=== PATIENT | male | born 1970 | race Caucasian/White ===

== ENCOUNTER → 2016-11-17 | Outpatient (CLI) | payer OTHER ==
[~2016-11-17] MED LIST: AMIO200T4 PO; ASPCH81X PO; CARV6.252 PO; FERR1TAB13 PO; FURO40TA3 PO; LSX40 PO; MAGN400T6 PO; POTA10CA28 PO; SPIR25TA PO; WARF3TAB PO; WARF6TAB PO
--- NOTE | 2016-11-18 06:07 | PAP/PSG TECHNICIAN REPORT ---
[facility] Software Engineer Web [employer] Polysomnogram Report Study name: None Report date: 11/18/2016 Study date: 11/17/2016 Referring Physician: Micheal PAULA M.D. Name: TONI KOO Interpreting Physician: Curtis Paula M.D. Date of : 1970 Software Engineer Web Applications: Vicky Mckeon RPSGT. Sex: Male Age: 45 Study Type: PSG Weight: 254 lbs 15.75 in Height: 45 years, Height 6' 0" Neck Circum: BMI: 34.44 Medications: POTASSIUM CHLORIDE 10 MEQ, AMLODARONE 20 0MG, LISINOPRIL 2.5 MG, FUROSEMIDE 80 MG, DIGOXIN 125 MCG, NITROGLYCERIN 0.4 MG, TYLENOL 500 MG, WARFARIN 3 MG, CARVEDILOL 6.25 MG, SPIRONOLACTONE 25 MG, COLACE 100 MG, FEOSOL 325 MG, MAGNESIUM 400 MG, ASPIRIN 81 MG Patient History 45 yr-old male here for a baseline/split study. He has a history of loud snoring, cardiomyopathy, daytime sleepiness, and witnessed apneas. His [place] scale is 8. The test was started on room air. ETCO2 testing was not utilized during this study. Room 3 Parameters Monitored NPSG: E1-M2, E2-M1, Fp1-M2, Fp2-M1, F3-M2, F4-M2, F4-M1, C3-M2, C4-M2, C4-M1, O1-M2, O2-M2, O2-M1, T3-M2, T4-M1, P3-M2, P4-M1, CHIN1, CHIN2, HR, EKG, Legs, PFLOW, SNOR, FLOW, CFLOW, Tidal Volume, THOR, ABDO, SpO2, PLTH, CPRESS, ETCO2 Wave, ETCO2, pH Sleep Architecture Sleep Stages Time at Lights Off 11:06:48 PM STAGES Time (min.) TST (%) Time at Lights On 5:46:48 AM Wake 82.0 -- Total Recording Time (TRT) 400.00 min. N1 58.5 18 Total Sleep Period (TSP) 379.5 min. N2 198.5 62 Total Sleep Time (TST) 318.0min. N3 4.0 1 Awake Time 82.0 min. REM 57.0 18 Wake after Sleep Onset 61.5 min. Sleep Efficiency (SE) 80 % Sleep Onset Latency (BARTOLO) 20.5 min. Number of Stage 1 Shifts None Awakenings 29 Stage Changes 115 Number of REM periods 4 REM 57.0 18 REM Latency 80.5 min. NREM 261.0 82 Body Position Analysis Supine Right Left Side Prone Vertical Total Sleep Time (min.) 58.7 62.5 248.0 310.50 0.0 0.0 Total Sleep Time (%) 2% 20% 78% 98 0% N/A% Total Sleep Time REM (min.) 0.0 10.5 46.5 None 0.0 0.0 Total Sleep Time NREM (min.) 7.5 52.0 201.5 None 0.0 0.0 Intermittent Wake (min.) 51.2 11.0 19.8 None 0.0 0.0 Total Sleep Period (%) 10% None None None None None Arousals Myoclonus (PLM) * Events Count Index Events Count Index Spontaneous 25 5 Events Awake (PLMW) 90 65.9 Respiratory 8 1.3 Events Asleep w/ Arousal (PLMA) 31 5.8 PLM 31 6 Events Asleep w/o Arousal (PLMS) 385 72.6 Snoring 5 1 Total Asleep 416 78.5 Total 69 13 Total 506 76 Respiratory Analysis * CA OA MA CH H RERA Total Count 0 0 0 0 10 3 10 Index 0.0 0.0 0.0 0 1.9 1 2.5 Mean Duration 0.0 0.0 0.0 0.00 16.2 16.0 16.2 Longest Duration 0.0 0.0 0.0 0.00 0.0 17.0 34.8 Respiratory Event Summary Total Supine ~Supine Right Left Prone REM NREM Apneas Count 0 0 0 0 0 N/A 0 0 Index 0.0 0 0 0.0 0.0 N/A 0 0 Hypopneas (4% Desat) Count 10 0 10 3 7 N/A 1 9 Index 1.9 0.0 2 2.9 1.7 N/A 1.1 2.1 Apneas & All Hypopneas Count 10 0 10 3 7 N/A 1 9 Index 1.9 0 2 3 2 N/A 1.1 2.1 Respiratory Events (Lining Maker+All Hyp+RERA) Count 10 0 13 4 9 N/A 1 9 Index 2.5 0 3 3.8 2.2 N/A 1.1 2.8 Respiratory Related Arousal Count 8 0 7 2 5 N/A 0 7 Index 1.3 0 1 2 1 N/A 0 2 Snoring Analysis Supine Right Left Prone REM NREM Total Snore duration 32.7 min Snores count 1 432 1,178 N/A 201 1,410 1,611 Snore mean duration 1.2 Sec Snores index 8 415 285 N/A 211.6 324.1 304.0 TST with snoring (%) 10.3% Desaturation Event Summary: Minimum %SpO2 Event Count Mean/Min/Max Duration(sec.) Desaturation Index % Time In Bed > 90 23 26.9 / 9.8 / 53.0 14.8 23.3 86 - 90 18 24.8 / 10.5 / 44.3 3.6 76.0 81 - 85 0 N/A 0.0 0.7 76 - 80 0 N/A 0.0 0.0 71 - 75 0 N/A 0.0 0.0 66 - 70 0 N/A 0.0 0.0 61 - 65 0 N/A 0.0 0.0 56 - 60 0 N/A 0.0 0.0 51 - 55 0 N/A 0.0 0.0 < 50 0 N/A 0.0 0.0 Total REM NREM Awake <50% 0.0 min. 0.0 min. 0.0 min. 0.0 min. 51 - 60% 0.0 min. 0.0 min. 0.0 min. 0.0 min. 61 - 70% 0.0 min. 0.0 min. 0.0 min. 0.0 min. 71 - 80% 0.0 min. 0.0 min. 0.0 min. 0.0 min. 81 - 90% 306.4 min. 54.4 min. 213.0 min. 39.0 min. 91 - 100% 93.3 min. 2.6 min. 48.0 min. 42.8 min. Average 90 88 90 90 Minimum SpO2 82 85 83 82 Desaturation Event Index 4.5 4.2 3.4 8.0 # Desat. Events below 89% 21 4 12 5 Time(%) with Saturation below 89% 23.8 8.3 12.4 3.1 Time(min.) with Saturation below 89% 95.3 33.3 49.8 12.3 Time (mins) REM (mins) NREM (mins) % of TST SpO2 Below 90% 19 4 N15 54.8 SpO2 Below 88% 7 0 0 9 Heart Rate Analysis Min (bpm) Max (bpm) Average (bpm) Awake 56 127 67 NREM 52 81 64 REM 52 80 59 Overall 52 81 63 Supplemental O2 Values Minimum O2 level: None Value Start Time End Time Software Engineer Web Applications Comments Mr. Koo slept in the right, left, and supine positions. Some cardiac arrhythmias were noted (please refer to the printouts). PLMs were noted. No bruxism noted. Snoring was noted and scored as a 2-3 on a scale of 1 through 5. (0=no snoring, 5=snoring loud enough to be heard through a closed door or down the k[address] way). He did not meet specific Split-Night criteria during the diagnostic portion of this study. He did not wake up to use the restroom during the night. Mr. Koo stated that he may have slept a little better than usual. The final report will be interpreted and signed by a sleep physician. The completed physician report will then be placed in the patient medical record. Therapy (cm H2O) 0 TIB (min.) 400.0 TST (min.) 318.0 Sleep Onset (min.) 20.5 REM Onset From Sleep (min.) 80.5 Sleep Efficiency % 80 Wakefulness (%) 21 Wakefulness (min.) 82.0 NREM 1 (%) 18 NREM 1 (min.) 58.5 NREM 2 (%) 62 NREM 2 (min.) 198.5 NREM 3 (%) 1 NREM 3 (min.) 4.0 REM (%) 18 REM (min.) 57.0 # Arousals 69 Arousal Index 13 # Snore 1,611 Snore Index 304.0 AHI 1.9 AHI Supine 0 AHI Non-Supine 2 NREM AHI 2.1 REM AHI 1.1 RDI 2.5 # Obstructive Apnea 0 # Central Apnea 0 # Mixed Apnea 0 # Hypopneas 10 RERAs 3 Total Respiratory Events 14 Time Below SpO2 89% (min.) 83.0 Mean NREM SpO2 (%) 90 Mean REM SpO2 (%) 88 Mean Sleep SpO2 (%) 89 Min NREM SpO2 (%) 83 Min REM SpO2 (%) 85 Position Supine (min.) 58.7 Position Non-supine (min.) 310.5 LM Index Sleep 78.5 LM Index NREM 91.3 LM Index REM 20.0 Mean Heart Rate (bpm) 63 Min Heart Rate (bpm) 52
--- NOTE | 2016-11-21 00:04 | POLYSOMNOGRAPH REPORT ---
REFERRING PERSON: Curtis Paula MD MEDICATION AID: Vicky Mckeon. Mr. Dodson is a 45-year-old male sent for a baseline sleep study. He complains of loud snoring, daytime sleepiness and witnessed apneas. He has a history of cardiomyopathy. His [place] sleepiness scale score on the evening of this study is 8. BMI is 34.44. Following the technical and digital specifications of the [place] [employer] (AASM) a standard diagnostic polysomnogram was performed monitoring EEG, EOG, EMG (chin and leg deviations), oxygen saturation, body position, digital video, respiratory effort and airflow. The sleep Stage and event scoring was based on the AASM Manual for the Scoring of Sleep and Associated Events 2007 edition. Apneas are defined as a drop in the peak thermal sensor excursion by >90% of baseline for at least 10 seconds. Hypopneas were scored using the 4% oxygen desaturation rule (4A-Medicare) and a decrease in the nasal pressure excursions by >30% of baseline for at least 10 seconds. Respiratory effort-related arousal (RERA's) is defined as a sequence of breaths lasting at least 10 seconds characterized by increasing respiratory effort or flattening of the nasal pressure waveform leading to an arousal from sleep when the sequence of breaths does not meet criteria for an apnea or hypopnea. Apnea Hypopnea index (AHI) is defined as the number of apneas and hypopneas occurring in an hour of sleep. Respiratory disturbance index (RDI) is defined as the number of apneas, hypopneas, and RERA's occurring in an hour of sleep. Mr. Dodson's total sleep period time was 379.5 minutes. Total sleep time was 318 minutes. Sleep efficiency was 80%. Latency to sleep onset was 20.5 minutes with wake after sleep onset of 61.5 minutes. Total non-REM sleep time was 261 minutes. He spent 18% of that time in N1 sleep, 62% in N2 sleep and 1% in N3 sleep. REM latency was 80.5 minutes. Total REM sleep time was 57 minutes or 18% of total sleep time. There were 69 cortical arousals from sleep. Five of these arousals were due to snoring, 31 due to periodic limb movements of sleep, 8 were due to respiratory events, and 25 were spontaneous. There were 416 periodic limb movements on this study. Limb movement index was 78.5; however, limb movement with arousal index was 5.8. There were no central, obstructive or mixed apneas on this test. There were 10 hypopneas and 3 RERAs. Apnea-hypopnea index was 1.9, which is normal. There were 1611 snoring events recorded. Total sleep time with snoring was 10.3%. Mean saturation during sleep was borderline at 90%. Desaturations were noted to 82% with sleep. Saturations were less than 89% for 95.3 minutes of sleep time. This is significant nocturnal hypoxemia. There was no cardiac ectopy noted on this study. Occasional PVC or PAC was noted. Heart rates ranged from a low of 52 beats per minute to a high of 81 beats per minute during sleep. IMPRESSION AND PLAN: A 45-year-old male with a history of cardiomyopathy without evidence of sleep apnea but significant nocturnal hypoxemia on this test. 1. This patient would likely benefit from oxygen therapy at bedtime should he not already have this. He should be started on 2 liters and then an overnight oximetry performed to ensure that this is the amount of oxygen he needs for his hypoxemia to resolve.
== END | disposition home or self-care (01) ==
LOC: C.NEUR 20:00
PROVIDERS: ATTEND Family Medicine
DX: G47.33 Obstructive sleep apnea (adult) (pediatric) (principal); G47.31 Primary central sleep apnea; R06.83 Snoring

== ENCOUNTER 2020-05-17 10:04 | Inpatient (IN) ==
--- NOTE | 2020-05-17 10:26 | Emergency Department Note ---
Impression & Plan Syncope, CKD (chronic kidney disease), Elevated troponin, Acute hypotension ED Provider Note NAME: TONI KOO AGE: 49 SEX: M : 1970 ARRIVES VIA: Walk-In INFORMANT: Patient ED PROVIDER(S): Guillermo Pradhan DO CHIEF COMPLAINT: Syncope HPI: Patient is a 49-year-old male who presents the ER for 2 rounds of syncope. Patient has a past medical history of embolic stroke, cardiomyopathy with an ICD, systolic heart failure, ABDIAS and previous heart cath. He notes he got up from bed this morning and was walking and passed out. He notes normally when he gets up he has to sit up and stand there for a while until his lightheadedness goes away which is pretty typical. He did this. As he was walking down the kiran he passed out for short period of time. He woke back up. No complaints. He was going to go the bathroom secondary to his lactulose. He eventually got a shower and was picking on his shirt and passed out again. He denies any chest pain shortness of breath, headache, nausea vomiting or diarrhea. ROS: See above HPI for pertinent positives & negatives. A total of 10 systems reviewed and were otherwise negative. PAST MEDICAL HISTORY:See Below PAST SURGICAL HISTORY:See Below FAMILY HISTORY:See Below SOCIAL HISTORY:See Below HOME MEDICATIONS:See Below ALLERGIES:See Below VITALS:See Below PHYSICAL EXAMINATION: GENERAL: alert, well appearing, well nourished, no distress, non-toxic HEAD: normal cephalic, atraumatic EYE EXAM: normal conjunctiva, PERRL and EOM's grossly intact OROPHARYNX: no exudate, no erythema, lips, buccal mucosa, and tongue normal and mucous membranes are moist NECK: supple, no nuchal rigidity, no adenopathy, non-tender CHEST: stable to compression anteriorly and posteriorly LUNGS: clear to auscultation. Normal chest wall mechanics HEART: no murmurs, S1 normal and S2 normal ABDOMEN: abdomen soft, non-tender, normo-active bowel sounds, no masses, no rebound or guarding. PELVIS: stable to compression anteriorly and posteriorly BACK: Back is symmetrical on inspection and there is no deformity, no midline tenderness, abrasion/bruising on the right back UPPER EXTREMITIES: full active and passive range of motion of all joints without tenderness to palpation LOWER EXTREMITIES: full active and passive range of motion of all joints without tenderness to palpation NEURO EXAM: Normal sensorium, cranial nerves II-XII intact, normal speech, no weakness of arms, no weakness of legs. No drift. Iagizq-cb-taew intact. GCS: 15. MEDICAL DECISION MAKING: Patient is a 49-year-old male who presents the ER with a past medical history of CVA, traumatic subarachnoid hemorrhage, CKD, cardiomyopathy, anticoagulation, ICD who presents the ER for 2 syncopal events today. On exam he is completely neurologically intact. CT head and cervical spine were negative. IVs were established blood was obtained. Lab work shows no significant leukocytosis or anemia. INR was slightly subtherapeutic at 1.9. BMP with a creatinine of 2.38 which is actually improved from his previous at 4. LFTs were unremarkable. T bili slightly elevated 1.5. Troponin was elevated at 0.07. Upon review of his chart his last one was elevated but that was with a creatinine of 4. Unable to determine if this elevation in troponin is acute versus baseline at this time. Did review [facility]'s records and in [facility] the only elevated troponins that we could ascertain was from the when he was shipped there from here with the elevated troponin the creatinine of 4. Based on this discussed with the ospitalist for observation. ICD was interrogated and showed no dysrhythmias. Triage Nursing notes reviewed. Prior medical records reviewed Vital Signs: reviewed and remarkable for hypotension but consistent with previous Differential diagnosis: Differential diagnosis includes etiologies such as vasovagal event, infection, hypoglycemia, electrolyte abnormalities, cardiac sources, intracerebral event, toxicologic, neurologic, as well as others were entertained. ER treatment provided: See below Diagnostics interpreted by me: ECG: Sinus bradycardia rate of [address] wave changes Cardiac Monitoring: An order was placed for continuous cardiac monitoring. The monitor shows a rate of 50 with sinus rhythm. Laboratory studies: As stated above and show below. Imaging studies: See below Consultation(s): Discussed with the hospitalist for observation ED COURSE: Procedures: none Critical Care: None Past Med/Surg History Medical History Anticoagulation goal of INR 2 to 3 (Chronic) Automatic implantable cardioverter-defibrillator in situ Cervical spine fracture 04/16/2020 Chronic systolic heart failure (Acute) CKD (chronic kidney disease) CVA (cerebral vascular accident) History of embolic stroke (Chronic) LV (left ventricular) mural thrombus History LV thrombus Nonischemic cardiomyopathy Traumatic subarachnoid hemorrhage 04/16/2020 Surgical History H/O cervical spine surgery 04[place]18[place] [facility] of cardiac cath [place]31/2016 [place] [facility] [place] Family History Mother Breast cancer Father Hypertension Social History Preferred Language: Occitan Current Living Situation: Parent Other Information That Helps Us Care for You: No Feels Safe at Home: Yes Safety Concerns: Feels Safe At This Time Smoking Status: Former smoker Do You Dip or Chew Tobacco: No ; Second Hand Exposure: No ; Hx Alcohol Use: Yes Alcohol type: beer Alcohol Intake Frequency: Holidays/Special Occasions Hx Substance Use: No Allergies Allergies Allergy/AdvReac Type Severity Reaction Status Date / Time No Known Drug Allergies Allergy Unknown Unknown Unverified 05/17/20 11:49 adhesive AdvReac Intermediate Rash Unverified 05/17/20 11:49 Home Meds Home Medications Medication Instructions Recorded Confirmed amiodarone [Pacerone] 200 mg PO QAM 04/16/20 05/17/20 aspirin 81 mg PO QAM 04/16/20 05/17/20 digoxin [Digox] 125 mcg PO HS 04/16/20 05/17/20 lactulose 30 ml PO BID PRN 04/16/20 05/17/20 lisinopril 2.5 mg PO HS 04/16/20 05/17/20 magnesium oxide 400 mg PO BID 04/16/20 05/17/20 metoprolol succinate [Toprol XL] 37.5 mg PO BID 04/16/20 05/17/20 potassium chloride [Klor-Con M10] 10 meq PO BID 04/16/20 05/17/20 spironolactone [Aldactone] 12.5 mg PO QAM 04/16/20 05/17/20 torsemide 20 mg PO BID 04/16/20 05/17/20 warfarin [Jantoven] 1.5 mg PO FR 04/16/20 05/17/20 warfarin [Jantoven] 3 mg PO SUMOTUWETHSA 04/16/20 05/17/20 acetaminophen [Tylenol Extra 500 mg PO Q6H PRN 05/17/20 05/17/20 Strength] nitroglycerin [Nitrostat] 0.4 mg SUBLINGUAL UD 05/17/20 05/17/20 Results & Data (ED) Vital Signs Vital Signs - 24 hr 05/17/20 10:06 05/17/20 10:21 05/17/20 12:04 Temperature 36.6 C Temperature Source Oral Pulse Rate 58 L Pulse Rate [Apical] 47 L Pulse Rhythm [Apical] Pulse Strength [Apical] Respiratory Rate 17 18 Respiratory Effort / Characteristics Non-Labored Spontaneous Respiratory Depth Normal Respiratory Pattern Blood Pressure 82/50 L Blood Pressure [Left Arm] 92/36 L Blood Pressure Mean 60 Blood Pressure Mean [Left Arm] 54 Pulse Oximetry 98 98 98 Oxygen Delivery Method Room Air Room Air Room Air Oxygen Flow Rate Sepsis Recent Fever Within 48 Hours No Sepsis New/Unexplained Change in Mental Status No Sepsis Action Taken by Nursing No Action Required 05/17/20 13:00 Temperature Temperature Source Pulse Rate Pulse Rate [Apical] 50 L Pulse Rhythm [Apical] Regular Pulse Strength [Apical] Normal Respiratory Rate 15 Respiratory Effort / Characteristics Non-Labored Spontaneous Respiratory Depth Normal Respiratory Pattern Regular Blood Pressure Blood Pressure [Left Arm] 91/50 L Blood Pressure Mean Blood Pressure Mean [Left Arm] 63 Pulse Oximetry 100 Oxygen Delivery Method Nasal Cannula Oxygen Flow Rate 2 Sepsis Recent Fever Within 48 Hours Sepsis New/Unexplained Change in Mental Status Sepsis Action Taken by Nursing Laboratory Data Result diagrams: 05/17/20 14:35 05/17/20 10:30 Lab Results 05/17/20 05/17/20 05/17/20 Range/Units 10:30 10:30 10:30 WBC 8.63 (4.8-10.8) K/uL RBC 3.84 L (4.7-6.1) M/uL Hgb 13.2 L (14.0-18.0) g/dL Hct 40.4 L (42-52) % MCV 105.2 H (80-100) fL MCH 34.4 H (25-34) pg MCHC 32.7 (32-36) g/dL RDW Std Deviation 67.3 H (36.4-46.3) fL RDW Coeff of Adolfo 17.5 H (11.5-14.5) % Plt Count 161 (130-400) K/uL MPV 9.9 (7.4-10.4) fL Immature Gran % (Auto) 0.3 % Neut % (Auto) 77.8 % Lymph % (Auto) 9.6 % Moca % (Auto) 7.8 % Eos % (Auto) 3.9 % Baso % (Auto) 0.6 % Neut # (Auto) 6.71 H (1.4-6.5) K/uL Lymph # (Auto) 0.83 L (1.2-3.4) K/uL Moca # (Auto) 0.67 H (0.11-0.59) K/uL Eos # (Auto) 0.34 (0-0.5) K/uL Baso # (Auto) 0.05 (0-0.2) K/uL Immature Gran # (Auto) 0.03 H (0.00-0.02) K/uL PT 19.8 H (9.0-12.0) Seconds INR 1.9 H (0.9-1.1) APTT 37.3 H (21.0-31.0) Seconds PTT Ratio 1.3 Sodium 137 (136-145) mmol/L Potassium 3.7 (3.5-5.1) mmol/L Chloride 105 (98-107) mmol/L Carbon Dioxide 27 (21-32) mmol/L Anion Gap 6.0 (3-11) BUN 28 H (7-18) mg/dl Creatinine 2.38 H (0.6-1.4) mg/dl Est Cr Clr Drug Dosing 44.3 ml/min Est GFR ( Amer) 36.3 Est GFR (Non-Af Amer) 31.3 BUN/Creatinine Ratio 11.7 (10-20) Glucose 123 H (70-99) mg/dl Calcium 8.2 L (8.5-10.1) mg/dl Magnesium 2.4 (1.8-2.4) mg/dl Total Bilirubin 1.5 H (0.2-1) mg/dl AST 46 H (15-37) U/L ALT 48 (12-78) U/L Alkaline Phosphatase 143 H (45-117) U/L Troponin I 0.074 H* (0-0.045) ng/ml Total Protein 6.8 (6.4-8.2) gm/dl Albumin 2.2 L (3.4-5.0) gm/dl Globulin 4.6 H (2.5-4.0) gm/dl Albumin/Globulin Ratio 0.5 L (0.9-2) Lipase 215 (73-393) U/L TSH 2.560 (0.300-4.500) uIu/ml Administered Medications [facility] Stop: 06/16/20 14:19 Last Admin: 05/17/20 15:43 Dose: 200 mg Documented by: [id number] Aspirin (Ecotrin Ectab) [facility] [place] Stop: 06/16/20 14:19 Last Admin: 05/17/20 15:43 Dose: 81 mg Documented by: [id number] Digoxin (Lanoxin) 0.125 mg PO Q24H [facility] Stop: 06/16/20 15:59 Last Admin: 05/17/20 15:42 Dose: 0.125 mg Documented by: [id number] Warfarin Sodium (Coumadin) 3 mg PO [id number] [facility] Stop: 06/16/20 15:59 Last Admin: 05/17/20 15:41 Dose: 3 mg Documented by: [id number] Discontinued Medications Sodium Chloride (Nss) 500 mls @ 999 mls/hr IV .Q31M [facility] Stop: 05/17/20 11:00 Last Infusion: 05/17/20 11:59 Dose: 0 mls/hr Documented by: [id number] Admin: 05/17/20 11:21 Dose: 999 mls/hr Documented by: [id number] Discharge Plan Visit Data *Final* Discharge Date/Time: 05/17/20 13:44 Chief Complaint: Fall Stated Complaint: FALL ED Provider: Guillermo Pradhan Discharge Problem: Syncope, CKD (chronic kidney disease), Elevated troponin, Acute hypotension Patient Disposition: Admitted As Inpatient Discharge Instructions Interventions: ED Discharge Assessment Last Done: 05/17/20 13:44
[2020-05-17] MEDS ORDERED: SODIUM CHLORIDE 0.9% 500 ML IV SCH (10:30)
[2020-05-17 10:40] LABS: Basophils # (auto) 0.05 K/uL (0-0.2); Basophils % (auto) 0.6 %; Eosinophils # (auto) 0.34 K/uL (0-0.5); Eosinophils % (auto) 3.9 %; Hematocrit (blood only) 40.4 % (42-52); Hemoglobin 13.2 g/dL (14.0-18.0); Immature Granulocytes # (auto) 0.03 K/uL (0.00-0.02); Immature Granulocytes % (auto) 0.3 %; Lymphocytes # (auto) 0.83 K/uL (1.2-3.4); Lymphocytes % (auto) 9.6 %; Mean Corpuscular Hemoglobin 34.4 pg (25-34); Mean Corpuscular Hgb Conc 32.7 g/dL (32-36); Mean Corpuscular Volume 105.2 fL (80-100); Mean Platelet Volume 9.9 fL (7.4-10.4); Monocytes # (auto) 0.67 K/uL (0.11-0.59); Monocytes % (auto) 7.8 %; Neutrophils # (auto) 6.71 K/uL (1.4-6.5); Neutrophils % (auto) 77.8 %; Platelet Count 161 K/uL (130-400); RDW Coefficient of Variation 17.5 % (11.5-14.5); RDW Standard Deviation 67.3 fL (36.4-46.3); Red Blood Count 3.84 M/uL (4.7-6.1); White Blood Count 8.63 K/uL (4.8-10.8)
[2020-05-17 10:50] LABS: INR 1.9 (0.9-1.1); Partial Thromboplastin Ratio 1.3; Partial Thromboplastin Time 37.3 Seconds (21.0-31.0); Prothrombin Time 19.8 Seconds (9.0-12.0)
[2020-05-17 10:56] LABS: Albumin Level 2.2 gm/dl (3.4-5.0); BUN Creatinine Ratio 11.7 (10-20); Calcium 8.2 mg/dl (8.5-10.1); Creatinine Clr Calc Pharmacy 44.3 ml/min; Est GFR (African American) 36.3; Est GFR (Non-African American) 31.3; Magnesium 2.4 mg/dl (1.8-2.4); Potassium 3.7 mmol/L (3.5-5.1)
--- NOTE | 2020-05-17 11:01 | XRay Report ---
XR chest 1V portable CLINICAL HISTORY: Trauma. Chest pain COMPARISON STUDY: 04/16/2020 FINDINGS: The heart remains enlarged. There is radiographic evidence of mild pulmonary vascular conge stion. There is no lobar consolidation. There is a trace right pleural effusion. There is a left subc lavian pacer/defibrillator.[No pneumothorax is visualized. IMPRESSION: Cardiomegaly and radiographic evidence of mild pulmonary vascular congestion. No evidence of pneumothorax ACT 112: Negative or not required by law. Electronically signed by: Iain Alvarez M.D. 05/17/2020 11:00 AM
--- NOTE | 2020-05-17 11:03 | CT Scan Report ---
CT head/brain wo con CLINICAL HISTORY: Syncope. Head trauma. History of prior cerebral hemorrhage. COMPARISON STUDY: 04/16/2020 TECHNIQUE: Axial CT of the brain is performed from the vertex to the skull base. IV contrast was not administered for this examination. A dose lowering technique was utilized adhering to the principles of ALARA. CT DOSE: FINDINGS: No intra or extra-axial mass lesions are visualized. There is no CT evidence of acute cortical infarc tion. There is no evidence of midline shift. There is no acute hemorrhage. No calvarial fractures ar e visualized. There are patchy white matter hypodensities likely on a small vessel basis. Is an old left frontal lo be infarct. There is an old infarct in the left lentiform nucleus. There is no evidence of pathologic ventricular dilatation. There is no evidence of acute sinusitis IMPRESSION: No acute intracranial findings ACT 112: Negative or not required by law. Electronically signed by: Iain Alvarez M.D. 05/17/2020 11:02 AM
--- NOTE | 2020-05-17 11:12 | CT Scan Report ---
CT OF THE CERVICAL SPINE CLINICAL HISTORY: Neck pain status post trauma COMPARISON STUDY: April 16, 2020 CT DOSE: 988.73 mGy.cm TECHNIQUE: CT scan of the cervical spine was performed from the skull base to the thoracic inlet. Mary ges are reviewed in the axial, sagittal, and coronal planes. IV contrast was not administered for thi s examination. A dose lowering technique was utilized adhering to the principles of ALARA. FINDINGS: The visualized portions of the lung apices reveal no evidence of pneumothorax. There is redemonstration of a fracture involving the left C5 superior articulating facet and foramen transversarium. Since the prior study, the patient has undergone an anterior fusion at the C4-5 level . No acute fractures are visualized. Also again evident are fractures of the right C2, C3, C4 transve rse processes. There are multilevel degenerative changes IMPRESSION: 1. No acute fractures identified 2. Redemonstration of fractures involving the left C5 foramen transversarium and superior articulatin g facet 3. Redemonstration of fractures involving the right C2, C3, C4 transverse processes. 3. Interval C4-5 anterior spinal fusion ACT 112: Negative or not required by law. Electronically signed by: Iain Alvarez M.D. 05/17/2020 11:10 AM
[2020-05-17 11:17] LABS: Albumin Globulin Ratio 0.5 (0.9-2); Bilirubin,Total 1.5 mg/dl (0.2-1); Globulin 4.6 gm/dl (2.5-4.0); Thyroid Stimulating Hormone 2.56 uIu/ml (0.300-4.500); Total Protein 6.8 gm/dl (6.4-8.2); Troponin I 0.074 ng/ml (0-0.045)
--- NOTE | 2020-05-17 13:40 | History & Physical Report ---
Date of Service May 17, 2020 Assessment & Plan (1) Syncope: Pt is 49 y/o M with complex PMH including nonischemic cardiomyopathy with EF 20% s/p ICD, H/O VT/VF, history of LV thrombus, on chronic anticoagulation, history of stroke, history of portal vein thrombosis, chronic hypotension with SBPs in 80's-90's, chronic anemia, recent episode of syncope and fall resulting in subarachnoid hemorrhage and C-spine fractures treated at [facility] [place] presented to ER with complaint of syncope. DDX: orthostatic hypotension, symptomatic bradycardia, arrhythmia, brain bleed, seizure CT head without any acute findings. Device interrogation in ER without reported event. Probable syncope secondary to hypotension, bradycardia -In ER pt received 500ml NSS. Pt with chronic low SBPs in 80s-90's range and in ER SBPs stable in 80's-90's. Digoxin level: 1.8, Hgb: 12.4 (stable), INR: 1.9, no significant electrolyte abnormality -UA pending -Obtain orthostatic vital signs -Pt normally on 1L fluid restrictions, will lessen fluid restrictions and allow 1500ml for now -Would appreciate cardiology recommendations on any diuretic med changes -Cardiology consult, spoke with Dr Morrison who recommends decreasing metoprolol succinate from 37.5mg BID to 25mg BID secondary to bradycardia -CBC, BMP in am -Has abrasion to right back, monitor for any signs of ecchymosis or hematoma as pt on Coumadin. No back pain or discomfort with palpation at this time (2) Bradycardia: In ER Pulse 40's-50s -Cardiology consult, spoke to spinning bath person and recommends decreasing metoprolol succinate from 37.5mg BID to 25mg BID secondary to bradycardia -Monitor (3) Elevated troponin: Troponin: 0.074, 0.08. (was 0.08 in 04/16/2020) No acute EKG changes, No CP, SOB. Pt with renal impairment Monitor (4) CKD (chronic kidney disease): H/O ABDIAS in 04/2020 with Cr of 4 which down trended to 2.2 on 05/05/2020 Today Cr: 2.3 -Monitor renal functions -Avoid nephrotoxic agents when possible (5) Nonischemic cardiomyopathy: EF: 20% on echo 04/2020 H/O VT/VF S/P ICD -Continue amiodarone, digoxin (digoxin level: 1.8), metoprolol, lisinopril, aspirin -No evidence of volume overload today. Continue torsemide, spironolactone -Normally on 1L fluid restriction, will allow for 1500ml fluid restriction for now. Received 500ml NSS in ER -Daily weights, monitor I's&O's, low sodium diet (6) LV (left ventricular) mural thrombus: H/O LV thrombus. On Coumadin Coumadin was held after traumatic subarachnoid hemorrhage in 04/16/2020. Was resumed 05/06/2020 per neurosurgery clearance INR: 1.9 Continue Coumadin INR in am (7) Portal vein thrombosis: H/O elevated ammonia levels. On lactulose Ammonia: 32.8 Continue lactulose (8) Traumatic subarachnoid hemorrhage: (9) Cervical spine fracture: 04/16/2020 patient had syncopal episode and fall resulting in subarachnoid hemorrhage, C-spine fractures. Treated at [facility] [place], had C-spine surgery and is in c- collar for 6-8 weeks. No acute findings on CT head or CT C-spine today. No reported neck pain or VEGA Continue c-collar DVT Prophylaxis -On Coumadin Full Code Follows with Dr West for routine care Pt was seen and care coordinated with Dr Yung. See addendum History of Present Illness Chief Complaint: Syncope Primary Care Provider: Oral West MD Pt is 49 y/o M with complex PMH including nonischemic cardiomyopathy with EF 20% s/p ICD, H/O VT/VF, history of LV thrombus, on chronic anticoagulation, history of stroke, history of portal vein thrombosis, chronic hypotension with SBPs in 80's-90's, chronic anemia, recent episode of syncope and fall resulting in subarachnoid hemorrhage and C-spine fractures treated at [facility] [place] presented to ER with complaint of syncope. Patient states at baseline has dizziness with standing and usually waits a few minutes prior to walking. States this morning he stood up to go to the bathroom waited a few minutes but cannot wait very long as he needed to have BM and was walking down kiran reports "passed out". Patient does not think he lost full consciousness. He then went to bathroom reports later bent over to orange picker clothes having another episode of passing out. Patient reports abrasion to back. Denies any neck pain. He reports he was wearing his c-collar. Patient states had some discomfort to left ribs with deep palpation, no pain with breathing or range of motion. Denies any back pain, extremity pain, paresthesias or any other known injury from fall today. 04/16/2020 patient had syncopal episode and fall resulting in subarachnoid hemorrhage, C-spine fractures, ABDIAS. Patient was at [facility] 04/17 - 04/21/2020 where he had C-spine surgery and is in c-collar for 6-8 weeks. Patient did not require brain procedure. Patient with original creatinine of 4 which down trended to 2.2 on 05/05/2020. Patient states has not been taking any narcotic pain meds. Patient closely being followed by home health and cardiology. Patient had home health BP on 04/13/2020 and SBP was in the 60s however patient was asymptomatic at the time. He reports his weight has been stable at 197 to 200 pounds. Denies any shortness of breath, orthopnea, PND, lower extremity edema. Patient reports is on 32 ounce fluid restriction. He states he is currently taking torsemide 20 mg twice daily, spironolactone 12.5 mg daily. Patient has lactulose to use twice daily as needed to maintain 2-3 BMs daily. Patient states past several days has needed to take lactulose daily and has been having loose BMs. Denies fever/chills, diaphoresis, N/V, VEGA, vision changes, palpitations, increased cough (reports chronic cough), sore throat, choking, otalgia, rhinorrhea, abdominal pain, paresthesias, weakness, extremity weakness, extremity edema, rashes, urinary symptoms. In ER pt reportedly had device interrogation without acute events noted. CT head without acute findings and c-spine without acute fractures. SBPs 80s-90s with pulse 40's-50's. He received 500ml NSS. Being admitted to hospital for further evaluation and treatment Allergies Allergy/AdvReac Type Severity Reaction Status Date / Time No Known Drug Allergies Allergy Unknown Unknown Unverified 05/17/20 11:49 adhesive AdvReac Intermediate Rash Unverified 05/17/20 11:49 Home Medications Home Medications Medication Instructions Recorded Confirmed Type amiodarone [Pacerone] 200 mg PO QAM 04/16/20 05/17/20 History aspirin 81 mg PO QAM 04/16/20 05/17/20 History digoxin [Digox] 125 mcg PO HS 04/16/20 05/17/20 History lactulose 30 ml PO BID PRN 04/16/20 05/17/20 History lisinopril 2.5 mg PO HS 04/16/20 05/17/20 History magnesium oxide 400 mg PO BID 04/16/20 05/17/20 History metoprolol succinate [Toprol XL] 37.5 mg PO BID 04/16/20 05/17/20 History potassium chloride [Klor-Con M10] 10 meq PO BID 04/16/20 05/17/20 History spironolactone [Aldactone] 12.5 mg PO QAM 04/16/20 05/17/20 History torsemide 20 mg PO BID 04/16/20 05/17/20 History warfarin [Jantoven] 1.5 mg PO FR 04/16/20 05/17/20 History warfarin [Jantoven] 3 mg PO SUMOTUWETHSA 04/16/20 05/17/20 History acetaminophen [Tylenol Extra 500 mg PO Q6H PRN 05/17/20 05/17/20 History Strength] nitroglycerin [Nitrostat] 0.4 mg SUBLINGUAL UD 05/17/20 05/17/20 History Past Med/Surg History Medical History Anticoagulation goal of INR 2 to 3 (Chronic) Automatic implantable cardioverter-defibrillator in situ Cervical spine fracture 04/16/2020 Chronic systolic heart failure (Acute) CKD (chronic kidney disease) CVA (cerebral vascular accident) History of embolic stroke (Chronic) LV (left ventricular) mural thrombus History LV thrombus Nonischemic cardiomyopathy Portal vein thrombosis Traumatic subarachnoid hemorrhage 04/16/2020 Surgical History H/O cervical spine surgery 04/18/2020 at [facility] [place] History of cardiac cath 03/31/2016 at [facility] [place] Family History Mother Breast cancer Father Hypertension Social History Preferred Language: Cuban Communication Ability: Effective Current Living Situation: Parent Other Information That Helps Us Care for You: No Feels Safe at Home: Yes Safety Concerns: Feels Safe At This Time Smoking Status: Former smoker Do You Dip or Chew Tobacco: No ; Second Hand Exposure: No ; Hx Alcohol Use: Yes Alcohol type: beer Alcohol Intake Frequency: Holidays/Special Occasions Hx Substance Use: No Review of Systems Review of Systems: All systems reviewed & are unremarkable except as noted in HPI & below Physical Exam Physical Exam: General: no acute distress, WDWN Head: normocephalic, atraumatic Eyes: PERRL, EOM's intact, conjunctiva non-injected, anicteric ENT: normal inspection external ears, nose, mucous membranes moist Neck: supple, trachea midline, C-collar in place Lungs: clear, no respiratory distress, no wheezing/rhonchi/rales CV: RRR, no murmur, no pretibial edema Chest wall: no ecchymosis or discolorations, non-tender to palpation, no crepitus Abd: normal BS, soft, non-tender, small ecchymosis noted lower abdomen Back: +abrasion right mid/lower back, No spinous process tenderness or paraspinous muscle tenderness to palpation, no CVA tenderness to palpation Ext: no cyanosis or erythema, no calf tenderness, ROM extremities intact Neuro: A&O x 3, no focal deficits noted, normal affect Skin: warm, dry Results & Data Results & Data ([facility]) Vital Signs (Past 12 Hours) Vital Signs Temp Pulse Pulse Resp BP BP Pulse Ox 05/17/20 13:33 46 L 18 92/49 L 100 05/17/20 13:00 50 L 15 91/50 L 100 05/17/20 12:04 47 L 18 92/36 L 98 05/17/20 10:21 98 05/17/20 10:06 36.6 C 58 L 17 82/50 L 98 Laboratory Results Short CBC 05/17/20 05/17/20 Range/Units 10:30 14:35 WBC 8.63 8.46 (4.8-10.8) K/uL Hgb 13.2 L 12.4 L (14.0-18.0) g/dL Hct 40.4 L 39.1 L (42-52) % Plt Count 161 159 (130-400) K/uL BMP 05/17/20 10:30 Sodium 137 Potassium 3.7 Chloride 105 Carbon Dioxide 27 BUN 28 H Creatinine 2.38 H Glucose 123 H Calcium 8.2 L Cardiac Enzymes 05/17/20 Range/Units 10:30 Troponin I 0.074 H* (0-0.045) ng/ml Liver Function 05/17/20 Range/Units 10:30 Total Bilirubin 1.5 H (0.2-1) mg/dl AST 46 H (15-37) U/L ALT 48 (12-78) U/L Alkaline Phosphatase 143 H (45-117) U/L Albumin 2.2 L (3.4-5.0) gm/dl Diagnostic Findings CT HEAD: IMPRESSION: No acute intracranial findings CT C-SPINE: IMPRESSION: 1. No acute fractures identified 2. Redemonstration of fractures involving the left C5 foramen transversarium and superior articulating facet 3. Redemonstration of fractures involving the right C2, C3, C4 transverse processes. 3. Interval C4-5 anterior spinal fusion CXR: IMPRESSION: Cardiomegaly and radiographic evidence of mild pulmonary vascular congestion. No evidence of pneumothorax ECG Rate (beats per minute): 46 Rhythm: sinus bradycardia Findings: + LBBB Code Status & VTE Plan VTE Prophylaxis Plan VTE Prophylaxis will be ordered: Yes Supervising Physician Co-Signing Physician Notes Patient was seen and examined by me, care coordinated with Bruna Guan PA-C. Please see her note above for further details. Mr. Dodson is a complex 49-year-old male, with history of chronic systolic congestive heart failure, with EF of 20 to 24%, history of ventricular tachycardia/ventricular fibrillation, status post AICD placement, mitral regurgitation secondary to dilated cardiomyopathy, history of embolic CVA and LV thrombus, chronic respiratory failure with hypoxia, using supplemental oxygen 2 to 3 L at night and with exertion, hyper-ammonemia secondary to portal vein thrombosis, and most recent history of traumatic subarachnoid hemorrhage, and cervical vertebral fracture, now status post C4-C5 anterior cervical discectomy and fusion on April 18, 2020 at [facility]. At that time patient was transferred to [facility], on April 13. For his subarachnoid hemorrhage, he followed with neurosurgery via telemedicine, on May 06, 2020, and he was advised to resume Coumadin. Patient is taking Coumadin 3 mg every day except for Monday, on Monday he takes 1.5 mg. He presents in the ED today, after 2 pre-syncopal episodes earlier today. He states that he first woke up, and because he is using lactulose, had to go urgently to the bathroom. As he was walking to the bathroom, he became dizzy and lightheaded and fell down on the floor. He then got up and got to the bathroom, afterward he was dressing himself and as he was reaching for his clothes in a closet, he became dizzy and lightheaded again and fell to the floor. He states that he remembers both incidents well, and denies actual loss of consciousness. He has history of left rib fracture, and states that it is little tender there now. He also scraped his right lower back however denies any pain there. Chest x-ray was obtained in the ED, unremarkable. His ICD was interrogated in ED, did not report any significant arrhythmias. He was given 500 cc of normal saline in the ED. Patient reports not taking any medications this morning. Current INR 1.9. Creatinine elevated at above 2, however previously was above 4. His ideal weight is 197 pounds to 200 pounds. Heart rate is currently in 40s, systolic blood pressure in 90s. Discussed with cardiology, recommend to decrease his metoprolol to 25 mg twice daily. We will also check his digoxin level. Patient is on a very strict fluid restriction diet, of 1 L a day. For now we will let him have 1500 cc a day of fluid. Continue sodium restricted diet. Strict monitoring of I's and O's and daily standing weights. Patient is currently sitting up in the bed, in no acute distress, patient's mother is at the bedside. They both stated after those 2 incidents, he felt weak and dizzy however now he feels well. Patient is alert and oriented, able to answer all questions appropriately. Heart sounds regular, positive systolic murmur, lungs are clear to auscultation bilaterally, no wheezing rhonchi or crackles noted. Abdomen soft, nontender, nondistended, positive bowel sounds. of note patient reports usually having increased fluid level showing in his abdomen, and reports never having lower extremity edema. Currently has no lower extremity edema, and moves all 4 extremities spontaneously without difficulty. He is wearing cervical collar, because of his recent C4-C5 surgery. He is st ill supposed to have this on for about 2 more weeks. Patient is also on chronic supplemental oxygen, says that he is using 2 to 3 L at home at night or with exertion (chronic respiratory failure with hypoxia due to CHF). We will continue to closely monitor on telemetry, will decrease metoprolol to 25 mg twice daily, will check digoxin level. Close I's and O's and daily standing weights. Will discuss with cardiology any further recommendations prior to discharge. Curtis Yung MD
[2020-05-17] MEDS ORDERED: NITROGLYCERIN SL 0.4 MG/TAB TAB SL PRN (14:20)
[2020-05-17] MEDS ORDERED: LACTULOSE SYRUP 20 GM/30 ML UDC PO PRN (14:39)
[2020-05-17 14:49] LABS: Basophils # (auto) 0.05 K/uL (0-0.2); Basophils % (auto) 0.6 %; Eosinophils # (auto) 0.13 K/uL (0-0.5); Eosinophils % (auto) 1.5 %; Hematocrit (blood only) 39.1 % (42-52); Hemoglobin 12.4 g/dL (14.0-18.0); Immature Granulocytes # (auto) 0.01 K/uL (0.00-0.02); Immature Granulocytes % (auto) 0.1 %; Lymphocytes # (auto) 0.98 K/uL (1.2-3.4); Lymphocytes % (auto) 11.6 %; Mean Corpuscular Hemoglobin 33.8 pg (25-34); Mean Corpuscular Hgb Conc 31.7 g/dL (32-36); Mean Corpuscular Volume 106.5 fL (80-100); Mean Platelet Volume 9.7 fL (7.4-10.4); Monocytes # (auto) 0.71 K/uL (0.11-0.59); Monocytes % (auto) 8.4 %; Neutrophils # (auto) 6.58 K/uL (1.4-6.5); Neutrophils % (auto) 77.8 %; Platelet Count 159 K/uL (130-400); RDW Coefficient of Variation 17.4 % (11.5-14.5); RDW Standard Deviation 68.3 fL (36.4-46.3); Red Blood Count 3.67 M/uL (4.7-6.1); White Blood Count 8.46 K/uL (4.8-10.8)
[2020-05-17] MEDS: WARFARIN SOD 3 MG TAB PO SCH (15:41)
[2020-05-17] MEDS: DIGOXIN 0.125 MG TAB PO SCH (15:42)
[2020-05-17] MEDS: AMIODARONE 200 MG TAB PO SCH (15:43)
[2020-05-17] MEDS: ASPIRIN 81 MG ECTAB PO SCH (15:43)
--- NOTE | 2020-05-17 16:14 | Hospitalist Progress Note ---
Date of Service May 17, 2020 Assessment & Plan Admission and Anticipated Discharge Date Admission Date: May 17, 2020 Subjective Patient was seen and examined by me, care coordinated with Bruna Guan PA-C. Please see her note above for further details. Mr. Dodson is a complex 49-year-old male, with history of chronic systolic congestive heart failure, with EF of 20 to 24%, history of ventricular tachycardia/ventricular fibrillation, status post AICD placement, mitral regurgitation secondary to dilated cardiomyopathy, history of embolic CVA and LV thrombus, chronic respiratory failure with hypoxia, using supplemental oxygen 2 to 3 L at night and with exertion, hyper-ammonemia secondary to portal vein thrombosis, and most recent history of traumatic subarachnoid hemorrhage, and cervical vertebral fracture, now status post C4-C5 anterior cervical discectomy and fusion on April 18, 2020 at [facility]. At that time patient was transferred to [facility], on April 13. For his subarachnoid hemorrhage, he followed with neurosurgery via telemedicine, on May 06, 2020, and he was advised to resume Coumadin. Patient is taking Coumadin 3 mg every day except for Monday, on Monday he takes 1.5 mg. He presents in the ED today, after 2 pre-syncopal episodes earlier today. He states that he first woke up, and because he is using lactulose, had to go urgently to the bathroom. As he was walking to the bathroom, he became dizzy and lightheaded and fell down on the floor. He then got up and got to the bathroom, afterward he was dressing himself and as he was reaching for his clothes in a closet, he became dizzy and lightheaded again and fell to the floor. He states that he remembers both incidents well, and denies actual loss of consciousness. He has history of left rib fracture, and states that it is little tender there now. He also scraped his right lower back however denies any pain there. Chest x-ray was obtained in the ED, unremarkable. His ICD was interrogated in ED, did not report any significant arrhythmias. He was given 500 cc of normal saline in the ED. Patient reports not taking any medications this morning. Current INR 1.9. Creatinine elevated at above 2, however previously was above 4. His ideal weight is 197 pounds to 200 pounds. Heart rate is currently in 40s, systolic blood pressure in 90s. Discussed with cardiology, recommend to decrease his metoprolol to 25 mg twice daily. We will also check his digoxin level. Patient is on a very strict fluid restriction diet, of 1 L a day. For now we will let him have 1500 cc a day of fluid. Continue sodium restricted diet. Strict monitoring of I's and O's and daily standing weights. Patient is currently sitting up in the bed, in no acute distress, patient's mother is at the bedside. They both stated after those 2 incidents, he felt weak and dizzy however now he feels well. Patient is alert and oriented, able to answer all questions appropriately. Heart sounds regular, positive systolic murmur, lungs are clear to auscultation bilaterally, no wheezing rhonchi or crackles noted. Abdomen soft, nontender, nondistended, positive bowel sounds. of note patient reports usually having increased fluid level showing in his abdomen, and reports never having lower extremity edema. Currently has no lower extremity edema, and moves all 4 extremities spontaneously without difficulty. He is wearing cervical collar, because of his recent C4-C5 surgery. He is still supposed to have this on for about 2 more weeks. Patient is also on chronic supplemental oxygen, says that he is using 2 to 3 L at home at night or with exertion (chronic respiratory failure with hypoxia due to CHF). We will continue to closely monitor on telemetry, will decrease metoprolol to 25 mg twice daily, will check digoxin level. Close I's and O's and daily standing weights. Will discuss with cardiology any further recommendations prior to discharge. Curtis Yung MD Results & Data Results & Data ([facility]) Vital Signs (Past 12 Hours) Vital Signs Temp Pulse Pulse Resp BP BP BP 05/17/20 15:45 36.6 C 50 L 19 83/46 L 05/17/20 15:42 54 L 05/17/20 14:28 36.8 C 48 L 19 89/50 L 05/17/20 14:20 36.8 C 48 L 19 89/50 L 05/17/20 13:33 46 L 18 92/49 L 05/17/20 13:00 50 L 15 91/50 L 05/17/20 12:04 47 L 18 92/36 L 05/17/20 10:21 05/17/20 10:06 36.6 C 58 L 17 82/50 L Pulse Ox 05/17/20 15:45 97 05/17/20 15:42 05/17/20 14:28 100 05/17/20 14:20 100 05/17/20 13:33 100 05/17/20 13:00 100 05/17/20 12:04 98 05/17/20 10:21 98 05/17/20 10:06 98
[2020-05-17] MEDS: TORSEMIDE 20 MG TAB PO SCH (17:05)
[2020-05-17] MEDS: ACETAMINOPHEN 325 MG TAB PO PRN (19:38)
[2020-05-17] MEDS: MAGNESIUM OXIDE 400 MG TAB PO SCH (19:39)
[2020-05-17] MEDS: POTASSIUM CHLORIDE 10 MEQ TABCR PO SCH (19:39)
[2020-05-17] MEDS: METOPROLOL SUCC 25MG EXT REL TAB PO SCH (19:40)
[2020-05-18] MEDS: ACETAMINOPHEN 325 MG TAB PO PRN ×3 (05:15→23:32)
[2020-05-18] MEDS: SPIRONOLACTONE 12.5 MG TAB PO SCH (08:17)
[2020-05-18] MEDS: MAGNESIUM OXIDE 400 MG TAB PO SCH ×2 (08:17→20:28)
[2020-05-18] MEDS: ASPIRIN 81 MG ECTAB PO SCH (08:17)
[2020-05-18] MEDS: POTASSIUM CHLORIDE 10 MEQ TABCR PO SCH ×2 (08:17→20:28)
[2020-05-18] MEDS: AMIODARONE 200 MG TAB PO SCH (08:17)
[2020-05-18 08:24] LABS: Hematocrit (blood only) 39.2 % (42-52); Hemoglobin 12.5 g/dL (14.0-18.0); Mean Corpuscular Hemoglobin 33.7 pg (25-34); Mean Corpuscular Hgb Conc 31.9 g/dL (32-36); Mean Corpuscular Volume 105.7 fL (80-100); Mean Platelet Volume 9.7 fL (7.4-10.4); Platelet Count 144 K/uL (130-400); RDW Coefficient of Variation 17.4 % (11.5-14.5); RDW Standard Deviation 67.6 fL (36.4-46.3); Red Blood Count 3.71 M/uL (4.7-6.1); White Blood Count 7.31 K/uL (4.8-10.8)
[2020-05-18] MEDS: METOPROLOL SUCC 25MG EXT REL TAB PO SCH ×2 (08:34→20:31)
[2020-05-18 08:35] LABS: INR 2.3 (0.9-1.1); Prothrombin Time 23.1 Seconds (9.0-12.0)
[2020-05-18 09:03] LABS: BUN Creatinine Ratio 13.4 (10-20); Calcium 8.1 mg/dl (8.5-10.1); Creatinine Clr Calc Pharmacy 46.3 ml/min; Est GFR (African American) 38.2; Est GFR (Non-African American) 32.9; Potassium 4.4 mmol/L (3.5-5.1)
[2020-05-18] MEDS: TORSEMIDE 20 MG TAB PO SCH (09:06)
[2020-05-18] MEDS ORDERED: METOPROLOL SUCC 25MG EXT REL TAB PO STA (09:13)
--- NOTE | 2020-05-18 10:09 | Cardiology Consultation ---
Date of Consultation May 18, 2020 Assessment & Plan (1) Syncope: (2) Bradycardia: (3) Nonischemic cardiomyopathy: (4) CVA (cerebral vascular accident): (5) LV (left ventricular) mural thrombus: (6) Traumatic subarachnoid hemorrhage: (7) Cervical spine fracture: (8) Portal vein thrombosis: This is now the 2nd episode of syncope in a little over a month. His device interrogation was reportedly unremarkable for arrhythmia, however, his heart rate remains in the 40s. I do believe this represents symptomatic bradycardia. At this point it appears as though he would benefit from a Bi V ICD upgrade and will have him follow up with his inhalation therapy aide as an outpatient I will decrease his metoprolol to 12.5 mg twice daily to see if this does not help with symptom control until device can be upgraded I also believe he is volume depleted given the reinstitution of his lactulose along with his twice daily torsemide and daily spironolactone All hold his torsemide for now as well as his lactulose. He should be discharged home with torsemide daily while using lactulose and going back to twice daily torsemide should the lactulose no longer be needed. His spironolactone will be continued uninterrupted due to its aldosterone antagonism. Continue to monitor on telemetry overnight with the above changes. History of Present Illness Reason for Consultation: Syncope Requesting Physician: Dr. Hays Attending Physician: Nerissa Hays MD History of Present Illness It was my pleasure to see Mr. Dodson in consultation today May 18, 2020. He is a very pleasant yet cardiovascularly complex 49-year-old gentleman who presented to [facility] after a syncopal event. He arose from a seated position with the significant urge to have a bowel movement after taking lactulose and upon arriving in the bathroom he syncopized. He normally waits several seconds before arising knowing that his blood pressure and heart rate have to equilibrate, however, the urge was too strong to have a bowel movement and he was unable to do this. Upon presentation to the emergency department he is found to be relatively hypotensive and bradycardic with heart rates consistently in the 40s He also suffered a recent syncopal spell that resulted in cervical fracture and traumatic subarachnoid hemorrhage. This occurred several weeks ago in the setting of volume depletion and being in a very hot room while visiting his grandmother. He has been seen by Dr. Euceda in consideration of upgrading his device to a by V ICD given his bradycardia and significant disc nonischemic cardiomyopathy and is scheduled to follow-up with him currently. Past medical history: 1. Systolic congestive heart failure, NYHA Class III+ functional status. 2. Nonischemic cardiomyopathy with ejection fraction 20-24% 3. Ventricular tachycardia/ventricular fibrillation. No recurrent VT/VF as per interrogation last on 11/25/2019. On amiodarone 300 mg/day, followed by EP 4. 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 History of embolic CVA 6. Nonspecific interventricular conduction delay 7. Chronic iron deficiency anemia No source of bleeding per recent EGD November 05, 2015. 8. Hyperammoniemia In the setting of chronic portal vein thrombosis. Allergies Allergy/AdvReac Type Severity Reaction Status Date / Time No Known Drug Allergies Allergy Unknown Unknown Unverified 05/17/20 11:49 adhesive AdvReac Intermediate Rash Unverified 05/17/20 11:49 Home Medications Home Medications Medication Instructions Recorded Confirmed Type amiodarone [Pacerone] 200 mg PO QAM 04/16/20 05/17/20 History aspirin 81 mg PO QAM 04/16/20 05/17/20 History digoxin [Digox] 125 mcg PO HS 04/16/20 05/17/20 History lactulose 30 ml PO BID PRN 04/16/20 05/17/20 History lisinopril 2.5 mg PO HS 04/16/20 05/17/20 History magnesium oxide 400 mg PO BID 04/16/20 05/17/20 History metoprolol succinate [Toprol XL] 37.5 mg PO BID 04/16/20 05/17/20 History potassium chloride [Klor-Con M10] 10 meq PO BID 04/16/20 05/17/20 History spironolactone [Aldactone] 12.5 mg PO QAM 04/16/20 05/17/20 History torsemide 20 mg PO BID 04/16/20 05/17/20 History warfarin [Jantoven] 1.5 mg PO FR 04/16/20 05/17/20 History warfarin [Jantoven] 3 mg PO SUMOTUWETHSA 04/16/20 05/17/20 History acetaminophen [Tylenol Extra 500 mg PO Q6H PRN 05/17/20 05/17/20 History Strength] nitroglycerin [Nitrostat] 0.4 mg SUBLINGUAL UD 05/17/20 05/17/20 History Patient History Medical History Anticoagulation goal of INR 2 to 3 (Chronic) Automatic implantable cardioverter-defibrillator in situ Cervical spine fracture 04/16/2020 Chronic systolic heart failure (Acute) CKD (chronic kidney disease) CVA (cerebral vascular accident) History of embolic stroke (Chronic) LV (left ventricular) mural thrombus History LV thrombus Nonischemic cardiomyopathy Portal vein thrombosis Traumatic subarachnoid hemorrhage 04/16/2020 Surgical History H/O cervical spine surgery 04/18/2020 at [facility] [place] History of cardiac cath 03/31/2016 at [facility] [place] Family History Mother Breast cancer Father Hypertension Social History Preferred Language: Icelandic Communication Ability: Effective Current Living Situation: Parent Other Information That Helps Us Care for You: No Feels Safe at Home: Yes Safety Concerns: Feels Safe At This Time Smoking Status: Former smoker Do You Dip or Chew Tobacco: No ; Second Hand Exposure: No ; Hx Alcohol Use: Yes Alcohol type: beer Alcohol Intake Frequency: Holidays/Special Occasions Hx Substance Use: No Review of Systems Review of Systems: All systems reviewed & are unremarkable except as noted in HPI & below Physical Exam Physical Exam: General: Awake, alert and oriented x 3. No acute distress. HEENT: Normocephalic, atraumatic. C-collar in place. Pupils equal, round and reactive to light and accommodation. Extraocular muscles are intact. Anicteric sclera. Moist mucous membranes. Neck: No JVD. No bruit. Cardiovascular: Regular. Positive S-4. Normal S-1 and S-2. No S-3. No murmurs or rubs. Pulmonary: Clear to auscultation B/L. No rales, rhonchi or wheezing Abdomen: Bowel sounds x 4, soft. No rebound, guarding or tenderness. No organomegaly. Extremities: No clubbing, cyanosis or edema. +2 pedal pulses bilaterally. Skin: Warm and dry. Results & Data ([facility]) Vital Signs (Past 12 Hours) Vital Signs Temp Pulse Pulse Resp BP BP Pulse Ox 05/18/20 07:45 61 05/18/20 07:36 49 L 05/18/20 07:04 36.7 C 48 L 19 90/50 L 96 05/18/20 03:23 36.8 C 53 L 16 79/42 L 100 05/18/20 00:00 37 C 47 L 18 89/50 L 100 Laboratory Results Laboratory Results - last 24 hr 05/17/20 05/17/20 05/17/20 10:30 10:30 10:30 WBC 8.63 RBC 3.84 L Hgb 13.2 L Hct 40.4 L MCV 105.2 H MCH 34.4 H MCHC 32.7 RDW Std Deviation 67.3 H RDW Coeff of Adolfo 17.5 H Plt Count 161 MPV 9.9 Immature Gran % (Auto) 0.3 Neut % (Auto) 77.8 Lymph % (Auto) 9.6 [place] % (Auto) 7.8 Eos % (Auto) 3.9 Baso % (Auto) 0.6 Neut # (Auto) 6.71 H Lymph # (Auto) 0.83 L [place] # (Auto) 0.67 H Eos # (Auto) 0.34 Baso # (Auto) 0.05 Immature Gran # (Auto) 0.03 H PT 19.8 H INR 1.9 H APTT 37.3 H PTT Ratio 1.3 Sodium 137 Potassium 3.7 Chloride 105 Carbon Dioxide 27 Anion Gap 6.0 BUN 28 H Creatinine 2.38 H Est Cr Clr Drug Dosing 44.3 Est GFR ( Amer) 36.3 Est GFR (Non-Af Amer) 31.3 BUN/Creatinine Ratio 11.7 Glucose 123 H Calcium 8.2 L Magnesium 2.4 Total Bilirubin 1.5 H AST 46 H ALT 48 Alkaline Phosphatase 143 H Ammonia Troponin I 0.074 H* Total Protein 6.8 Albumin 2.2 L Globulin 4.6 H Albumin/Globulin Ratio 0.5 L Lipase 215 TSH 2.560 Digoxin 05/17/20 05/17/20 05/17/20 13:45 14:35 14:35 WBC 8.46 RBC 3.67 L Hgb 12.4 L Hct 39.1 L MCV 106.5 H MCH 33.8 MCHC 31.7 L RDW Std Deviation 68.3 H RDW Coeff of Adolfo 17.4 H Plt Count 159 MPV 9.7 Immature Gran % (Auto) 0.1 Neut % (Auto) 77.8 Lymph % (Auto) 11.6 [place] % (Auto) 8.4 Eos % (Auto) 1.5 Baso % (Auto) 0.6 Neut # (Auto) 6.58 H Lymph # (Auto) 0.98 L [place] # (Auto) 0.71 H Eos # (Auto) 0.13 Baso # (Auto) 0.05 Immature Gran # (Auto) 0.01 PT INR APTT PTT Ratio Sodium Potassium Chloride Carbon Dioxide Anion Gap BUN Creatinine Est Cr Clr Drug Dosing Est GFR ( Amer) Est GFR (Non-Af Amer) BUN/Creatinine Ratio Glucose Calcium Magnesium Total Bilirubin AST ALT Alkaline Phosphatase Ammonia 32.8 H Troponin I Total Protein Albumin Globulin Albumin/Globulin Ratio Lipase TSH Digoxin 1.8 05/17/20 05/18/20 05/18/20 16:00 08:05 08:05 WBC 7.31 RBC 3.71 L Hgb 12.5 L Hct 39.2 L MCV 105.7 H MCH 33.7 MCHC 31.9 L RDW Std Deviation 67.6 H RDW Coeff of Adolfo 17.4 H Plt Count 144 MPV 9.7 Immature Gran % (Auto) Neut % (Auto) Lymph % (Auto) [place] % (Auto) Eos % (Auto) Baso % (Auto) Neut # (Auto) Lymph # (Auto) [place] # (Auto) Eos # (Auto) Baso # (Auto) Immature Gran # (Auto) PT 23.1 H INR 2.3 H APTT PTT Ratio Sodium Potassium Chloride Carbon Dioxide Anion Gap BUN Creatinine Est Cr Clr Drug Dosing Est GFR ( Amer) Est GFR (Non-Af Amer) BUN/Creatinine Ratio Glucose Calcium Magnesium Total Bilirubin AST ALT Alkaline Phosphatase Ammonia Troponin I 0.085 H* Total Protein Albumin Globulin Albumin/Globulin Ratio Lipase TSH Digoxin 05/18/20 08:05 WBC RBC Hgb Hct MCV MCH MCHC RDW Std Deviation RDW Coeff of Adolfo Plt Count MPV Immature Gran % (Auto) Neut % (Auto) Lymph % (Auto) [place] % (Auto) Eos % (Auto) Baso % (Auto) Neut # (Auto) Lymph # (Auto) [place] # (Auto) Eos # (Auto) Baso # (Auto) Immature Gran # (Auto) PT INR APTT PTT Ratio Sodium 135 L Potassium 4.4 D Chloride 100 Carbon Dioxide 31 Anion Gap 4.0 BUN 31 H Creatinine 2.28 H Est Cr Clr Drug Dosing 46.3 Est GFR ( Amer) 38.2 Est GFR (Non-Af Amer) 32.9 BUN/Creatinine Ratio 13.4 Glucose 88 Calcium 8.1 L Magnesium Total Bilirubin AST ALT Alkaline Phosphatase Ammonia Troponin I Total Protein Albumin Globulin Albumin/Globulin Ratio Lipase TSH Digoxin Medications Administered Current Inpatient Medications Acetaminophen (Tylenol) 650 mg PO Q4H PRN PRN Reason: Pain or Fever Stop: 06/16/20 14:19 Last Admin: 05/18/20 05:15 Dose: 650 mg Documented by: Amiodarone HCl (Cordarone) 200 mg PO QAM [facility] Stop: 06/16/20 14:19 Last Admin: 05/18/20 08:17 Dose: 200 mg Documented by: Aspirin (Ecotrin Ectab) 81 mg PO QAM [facility] Stop: 06/16/20 14:19 Last Admin: 05/18/20 08:17 Dose: 81 mg Documented by: Digoxin (Lanoxin) 0.125 mg PO Q24H [facility] Stop: 06/16/20 15:59 Last Admin: 05/17/20 15:42 Dose: 0.125 mg Documented by: Lactulose (Chronulac) 20 gm PO BID PRN PRN Reason: CONSTIPATION Stop: 06/16/20 14:38 Lisinopril (Zestril) 2.5 mg PO HS [facility] Stop: 06/16/20 20:59 Last Admin: 05/17/20 19:41 Dose: Not Given Documented by: Magnesium Oxide (Mag-Ox) 400 mg PO BID [facility] Stop: 06/16/20 20:59 Last Admin: 05/18/20 08:17 Dose: 400 mg Documented by: Metoprolol Succinate (Toprol Xl) 12.5 mg PO BID [facility] Stop: 06/17/20 20:59 Nitroglycerin (Nitrostat) 0.4 mg SL PRN PRN Reason: Chest Pain Stop: 06/16/20 14:19 Potassium Chloride (Klor-Con M10) 10 meq PO BID [facility] Stop: 06/16/20 20:59 Last Admin: 05/18/20 08:17 Dose: 10 meq Documented by: [facility]act[facility] ([facility]) [facility] Stop: 06/17/20 08:59 Last Admin: 05/18/20 08:17 Dose: 12.5 mg Documented by: Torsemide (Demadex) [facility] Stop: 06/18/20 08:59 Warfarin Sodium (Coumadin) 1 mg PO Fr@1600 [facility] Stop: 06/21/20 15:59 Warfarin Sodium (Coumadin) 3 mg PO SuMoTuWeThSa@1600 [facility] Stop: 06/16/20 15:59 Last Admin: 05/17/20 15:41 Dose: 3 mg Documented by: Warfarin Sodium (Coumadin) 0.5 mg PO Fr@1600 [facility] Stop: 06/21/20 15:59
--- NOTE | 2020-05-18 14:34 | Electrocardiogram Report ---
Test Reason : Blood Pressure : / mmHG Vent. Rate : 046 BPM Atrial Rate : 046 BPM P-R Int : 188 ms QRS Dur : 138 ms QT Int : 484 ms P-R-T Axes : 030 -23 099 degrees QTc Int : 423 ms Sinus bradycardia Left bundle branch block Abnormal ECG When compared with ECG of 16-APR-2020 20:20, T wave inversion less evident in Lateral leads Confirmed by Rigoberto Montes ([id number]) on 05/18/2020 2:33:49 PM Referred By: REFERRED SELF Confirmed By:Vaughn Montes
--- NOTE | 2020-05-18 15:01 | Hospitalist Progress Note ---
Date of Service May 18, 2020 Assessment & Plan (1) Syncope: Pt is 49 y/o M with complex PMH including nonischemic cardiomyopathy with EF 20% s/p ICD, H/O VT/VF, history of LV thrombus, on chronic anticoagulation, history of stroke, history of portal vein thrombosis, chronic hypotension with SBPs in 80's-90's, chronic anemia, recent episode of syncope and fall resulting in subarachnoid hemorrhage and C-spine fractures [place] [facility] [place] presented to ER with complaint of syncope. DDX: orthostatic hypotension, symptomatic bradycardia, arrhythmia, brain bleed, seizure CT head without any acute findings. Device interrogation in ER without reported event. Probable syncope secondary to hypotension, bradycardia Has been feeling a lot better since admission Denies any more episode (2) Bradycardia: In ER Pulse 40's-50s -Cardiology consult, spoke to application systems engineer and recommends decreasing metoprolol succinate from 37.5mg BID to 25mg BID secondary to bradycardia -Pacemaker monitor interrogated and has not found any significant arrhythmias -Appreciate cardiology input and recommendation -Beta-diane dose has been decreased (3) Elevated troponin: Troponin: 0.074, 0.08. (was 0.08 in 04/16/2020) No acute EKG changes, No CP, SOB. Pt with renal impairment Doubt any ACS (4) CKD (chronic kidney disease): H/O ABDIAS in 04/2020 with Cr of 4 which down trended to 2.2 on 05/05/2020 Today Cr: 2.3 -Avoid nephrotoxic agents when possible -We will monitor PRP (5) Nonischemic cardiomyopathy: EF: 20% on echo 04/2020 H/O VT/VF S/P ICD -Continue amiodarone, digoxin (digoxin level: 1.8), metoprolol, lisinopril, aspirin -No evidence of volume overload today. Continue torsemide, spironolactone -Normally on 1L fluid restriction, will allow for 1500ml fluid restriction for now. Received 500ml NSS in ER -Daily weights, monitor I's&O's, low sodium diet (6) LV (left ventricular) mural thrombus: H/O LV thrombus. On Coumadin Coumadin was held after traumatic subarachnoid hemorrhage in 04/16/2020. Was resumed 05/06/2020 per neurosurgery clearance INR: 1.9 Continue Coumadin INR in am-INR is 2.3 on 05/18/2020 (7) Portal vein thrombosis: H/O elevated ammonia levels. On lactulose Ammonia: 32.8 Continue lactulose (8) Traumatic subarachnoid hemorrhage: Was evaluated by [facility] neurology and was advised to restart Coumadin No acute symptoms (9) Cervical spine fracture: 04/16/2020 patient had syncopal episode and fall resulting in subarachnoid hemorrhage, C-spine fractures. Treated at [facility], had C-spine surgery and is in c- collar for 6-8 weeks. No acute findings on CT head or CT C-spine today. No reported neck pain or VEGA Continue c-collar DVT Prophylaxis -On Coumadin Full Code Follows with Dr West for routine care Likely discharge in a day or 2 Admission and Anticipated Discharge Date Admission Date: May 17, 2020 Subjective The patient was seen and examined in telemetry unit He is a 49-year-old male with significant complicated past medical history including nonischemic cardiomyopathy with EF of 20% status post ICD placement and other medical conditions as mentioned in H&P was admitted with episodes of presyncope/syncope which seems to be positional and with exertion He was noted to be hypotensive in ER with a heart rate of around 40s He has been feeling much better since this morning and denies any chest pain and/or shortness of breath Review of Systems Review of Systems: All systems reviewed and are unremarkable except as noted below Constitutional: + weakness Respiratory: no dyspnea Neurologic: + dizziness (With activity) Physical Exam Physical Exam: Lying on bed without any acute distress Constitutional: well developed, well nourished, + ill appearing and + obese; no acute distress Eyes: PERRL, conjunctivae normal, anicteric sclerae ENMT: external ear and nose normal, oropharynx normal Neck: trachea midline, no thyromegaly Respiratory: normal respiratory effort; no respiratory distress Auscultation: + diminished lung sounds and + crackles (Bibasilar crackles) Cardiovascular: Rate/Rhythm: regular rate and regular rhythm Heart Sounds: no murmur Gastrointestinal (Abdomen): Inspection/Auscultation: abdomen normal to inspection and normal bowel sounds Percussion/Palpation: abdomen soft; abdomen nontender Musculoskeletal: No acute arthritis involving any joints Lymphatic: no cervical or axillary lymphadenopathy Results & Data Results & Data ([facility]) Vital Signs (Past 12 Hours) Vital Signs Temp Pulse Pulse Resp BP BP Pulse Ox 05/18/20 10:46 37.0 C 54 L 20 94/60 L 99 05/18/20 10:21 110/63 05/18/20 07:45 61 05/18/20 07:36 49 L 05/18/20 07:04 36.7 C 48 L 19 90/50 L 96 05/18/20 03:23 36.8 C 53 L 16 79/42 L 100 Laboratory Results Short CBC 05/18/20 Range/Units 08:05 WBC 7.31 (4.8-10.8) K/uL Hgb 12.5 L (14.0-18.0) g/dL Hct 39.2 L (42-52) % Plt Count 144 (130-400) K/uL BMP 05/18/20 08:05 Sodium 135 L Potassium 4.4 D Chloride 100 Carbon Dioxide 31 BUN 31 H Creatinine 2.28 H Glucose 88 Calcium 8.1 L Cardiac Enzymes 05/17/20 Range/Units 16:00 Troponin I 0.085 H* (0-0.045) ng/ml Medications Administered Current Inpatient Medications Acetaminophen (Tylenol) 650 mg PO Q4H PRN PRN Reason: Pain or Fever Stop: 06/16/20 14:19 Last Admin: 05/18/20 12:41 Dose: 650 mg Documented by: Amiodarone HCl (Cordarone) 200 mg PO QAM [facility] Stop: 06/16/20 14:19 Last Admin: 05/18/20 08:17 Dose: 200 mg Documented by: Aspirin (Ecotrin Ectab) 81 mg PO QAM [facility] Stop: 06/16/20 14:19 Last Admin: 05/18/20 08:17 Dose: 81 mg Documented by: Digoxin (Lanoxin) 0.125 mg PO Q24H [facility] Stop: 06/16/20 15:59 Last Admin: 05/17/20 15:42 Dose: 0.125 mg Documented by: Lactulose (Chronulac) 20 gm PO BID PRN PRN Reason: CONSTIPATION Stop: 06/16/20 14:38 Lisinopril (Zestril) 2.5 mg PO HS [facility] Stop: 06/16/20 20:59 Last Admin: 05/17/20 19:41 Dose: Not Given Documented by: Magnesium Oxide (Mag-Ox) 400 mg PO BID [facility] Stop: 06/16/20 20:59 Last Admin: 05/18/20 08:17 Dose: 400 mg Documented by: Metoprolol Succinate (Toprol Xl) 12.5 mg PO BID [facility] Stop: 06/17/20 20:59 Nitroglycerin (Nitrostat) 0.4 mg SL UD PRN PRN Reason: Chest Pain Stop: 06/16/20 14:19 Potassium Chloride (Klor-Con M10) 10 meq PO BID [facility] Stop: 06/16/20 20:59 Last Admin: 05/18/20 08:17 Dose: 10 meq Documented by: Spironolactone (Aldactone) 12.5 mg PO QAM [facility] Stop: 06/17/20 08:59 Last Admin: 05/18/20 08:17 Dose: 12.5 mg Documented by: Torsemide (Demadex) 20 mg PO QAM [facility] Stop: 06/18/20 08:59 Warfarin Sodium (Coumadin) 1 mg PO Fr@1600 [facility] Stop: 06/21/20 15:59 Warfarin Sodium (Coumadin) 3 mg PO SuMoTuWeThSa@1600 [facility] Stop: 06/16/20 15:59 Last Admin: 05/17/20 15:41 Dose: 3 mg Documented by: Warfarin Sodium (Coumadin) 0.5 mg PO Fr@1600 [facility] Stop: 06/21/20 15:59
[2020-05-18] MEDS: WARFARIN SOD 3 MG TAB PO SCH (17:04)
[2020-05-18] MEDS: DIGOXIN 0.125 MG TAB PO SCH (17:05)
[2020-05-18 18:27] LABS: Appearance Urine Clear (Clear); Bilirubin Urine Negative (Negative); Blood Urine Negative (Negative); Color Urine Yellow; Glucose Urine UA Negative (Negative); Ketones Urine Negative (Negative); Leukocyte Esterase Urine Negative (Negative); Nitrite Urine Negative (Negative); Protein Urine Negative (Negative); Specific Gravity Urine 1.017 (1.000-1.030); Urobilinogen Urine Negative (Negative)
[2020-05-19 07:10] LABS: INR 2.7 (0.9-1.1); Prothrombin Time 26.6 Seconds (9.0-12.0)
[2020-05-19] MEDS: ACETAMINOPHEN 325 MG TAB PO PRN (08:38)
[2020-05-19] MEDS: METOPROLOL SUCC 25MG EXT REL TAB PO SCH (08:39)
[2020-05-19] MEDS: AMIODARONE 200 MG TAB PO SCH (08:40)
[2020-05-19] MEDS: POTASSIUM CHLORIDE 10 MEQ TABCR PO SCH (08:40)
[2020-05-19] MEDS: ASPIRIN 81 MG ECTAB PO SCH (08:40)
[2020-05-19] MEDS: SPIRONOLACTONE 12.5 MG TAB PO SCH (08:40)
[2020-05-19] MEDS: MAGNESIUM OXIDE 400 MG TAB PO SCH (08:41)
[2020-05-19] MEDS ORDERED: TORSEMIDE 20 MG TAB PO SCH (09:00)
--- NOTE | 2020-05-19 10:34 | Cardiology Progress Note ---
Date of Service May 19, 2020 Assessment & Plan (1) Syncope: (2) Bradycardia: (3) Nonischemic cardiomyopathy: (4) CVA (cerebral vascular accident): (5) LV (left ventricular) mural thrombus: (6) Traumatic subarachnoid hemorrhage: (7) Cervical spine fracture: (8) Portal vein thrombosis: This is now the 2nd episode of syncope in a little over a month. His device interrogation was reportedly unremarkable for arrhythmia, however, his heart rate remains in the 40s. I do believe this represents symptomatic bradycardia. At this point it appears as though he would benefit from a Bi V ICD upgrade and will have him follow up with his grout pump operator as an outpatient His blood pressure and heart rate have significantly improved with the decreased dose of metoprolol and clinically he feels better as well. DC to home with metoprolol succinate 12.5 mg p.o. twice daily. He should be discharged with his previous dose of torsemide 20 mg twice daily, however, on the days that he requires lactulose he should not take the afternoon dose of torsemide. His spironolactone will be continued uninterrupted due to its aldosterone antagonism. He states that he understands and agrees with the above plan and will follow-up as directed. Okay to discharge to home. My office will call to arrange cardiology follow-up. Subjective Patient seen and examined, chart reviewed. States he is feeling well. He feels back to normal today and remains without complaint. He does notice that his energy levels seem to have improved since the dose of his beta-diane was cut back. Telemetry reviewed: Normal sinus rhythm without arrhythmia or significant ectopy. Review of Systems Review of Systems: All systems reviewed & are unremarkable except as noted in HPI & below Physical Exam Physical Exam: General: Awake, alert and oriented x 3. No acute distress. HEENT: Normocephalic, atraumatic. Pupils equal, round and reactive to light and accommodation. Extraocular muscles are intact. Anicteric sclera. Moist mucous membranes. Neck: No JVD. No bruit. Cervical collar in place. Cardiovascular: Regular. Positive S-4. Normal S-1 and S-2. No S-3. No murmurs or rubs. Pulmonary: Clear to auscultation B/L. No rales, rhonchi or wheezing Abdomen: Bowel sounds x 4, soft. No rebound, guarding or tenderness. No organomegaly. Extremities: No clubbing, cyanosis or edema. +2 pedal pulses bilaterally. Skin: Warm and dry. Results & Data Vital Signs (Past 12 Hours) Vital Signs Temp Pulse Resp BP Pulse Ox 05/19/20 07:52 36.6 C 74 16 98/54 L 98 05/19/20 03:41 36.3 C L 63 16 101/58 L 95 05/19/20 00:15 36.9 C 58 L 18 117/74 96
--- NOTE | 2020-05-19 12:26 | Hospitalist Progress Note ---
Date of Service May 19, 2020 Assessment & Plan (1) Syncope: Pt is 49 y/o M with complex PMH including nonischemic cardiomyopathy with EF 20% s/p ICD, H/O VT/VF, history of LV thrombus, on chronic anticoagulation, history of stroke, history of portal vein thrombosis, chronic hypotension with SBPs in 80's-90's, chronic anemia, recent episode of syncope and fall resulting in subarachnoid hemorrhage and C-spine fractures treated at [facility] presented to ER with complaint of syncope. DDX: orthostatic hypotension, symptomatic bradycardia, arrhythmia, brain bleed, seizure CT head without any acute findings. Device interrogation in ER without reported event. Probable syncope secondary to hypotension, bradycardia Has been feeling a lot better since admission Denies any more episode (2) Bradycardia: In ER Pulse 40's-50s -Cardiology consult, spoke to reclamation kettle tender and recommends decreasing metoprolol succinate from 37.5mg BID to 25mg BID secondary to bradycardia -Pacemaker monitor interrogated and has not found any significant arrhythmias -Appreciate cardiology input and recommendation -Beta-diane dose has been decreased -His heart rate remains stable without any arrhythmias and no more bradycardia (3) Elevated troponin: Troponin: 0.074, 0.08. (was 0.08 in 04/16/2020) No acute EKG changes, No CP, SOB. Pt with renal impairment Doubt any ACS (4) CKD (chronic kidney disease): H/O ABDIAS in 04/2020 with Cr of 4 which down trended to 2.2 on 05/05/2020 Today Cr: 2.3 -Avoid nephrotoxic agents when possible -Renal function has remained stable with creatinine 2.28 as of 05/19/2020 (5) Nonischemic cardiomyopathy: EF: 20% on echo 04/2020 H/O VT/VF S/P ICD -Continue amiodarone, digoxin (digoxin level: 1.8), metoprolol, lisinopril, aspirin -No evidence of volume overload today. Continue torsemide, spironolactone -Normally on 1L fluid restriction, will allow for 1500ml fluid restriction for now. Received 500ml NSS in ER -Daily weights, monitor I's&O's, low sodium diet -He will have ICD replacement sometime in the near future (6) LV (left ventricular) mural thrombus: H/O LV thrombus. On Coumadin Coumadin was held after traumatic subarachnoid hemorrhage in 04/16/2020. Was resumed 05/06/2020 per neurosurgery clearance INR: 1.9 Continue Coumadin INR in am-INR is 2.3 on 05/18/2020 (7) Portal vein thrombosis: H/O elevated ammonia levels. On lactulose Ammonia: 32.8 Continue lactulose (8) Traumatic subarachnoid hemorrhage: Was evaluated by [facility] neurology and was advised to restart Coumadin No acute symptoms (9) Cervical spine fracture: 04/16/2020 patient had syncopal episode and fall resulting in subarachnoid hemorrhage, C-spine fractures. Treated at [facility], had C-spine surgery and is in c- collar for 6-8 weeks. No acute findings on CT head or CT C-spine today. No reported neck pain or VEGA Continue c-collar DVT Prophylaxis -On Coumadin -INR is 2.7 today Full Code Follows with Dr West for routine care Will discharge home this afternoon Admission and Anticipated Discharge Date Admission Date: May 17, 2020 Subjective The patient was seen and examined in telemetry unit He is a 49-year-old male with significant complicated past medical history including nonischemic cardiomyopathy with EF of 20% status post ICD placement and other medical conditions as mentioned in H&P was admitted with episodes of presyncope/syncope which seems to be positional and with exertion He was noted to be hypotensive in ER with a heart rate of around 40s He has been feeling much better since this morning and denies any chest pain and/or shortness of breath 05/19/2020 The patient was seen and examined in telemetry unit He has been feeling a lot better today and denies any symptoms when ambulance Denies any chest pain and no palpitation Was cleared from cardiology to go home Review of Systems Review of Systems: All systems reviewed and are unremarkable except as noted below Neurologic: no dizziness Physical Exam Physical Exam: Lying on bed without any acute distress Constitutional: well developed, well nourished, + ill appearing and + obese; no acute distress Eyes: PERRL, conjunctivae normal, anicteric sclerae ENMT: external ear and nose normal, oropharynx normal Neck: trachea midline, no thyromegaly Respiratory: normal respiratory effort; no respiratory distress Auscultation: + diminished lung sounds and + crackles (Bibasilar crackles) Cardiovascular: Rate/Rhythm: regular rate and regular rhythm Heart Sounds: no murmur Gastrointestinal (Abdomen): Inspection/Auscultation: abdomen normal to inspection and normal bowel sounds Percussion/Palpation: abdomen soft; abdomen nontender Musculoskeletal: No acute arthritis involving any joints Lymphatic: no cervical or axillary lymphadenopathy Results & Data Results & Data ([facility]) Vital Signs (Past 12 Hours) Vital Signs Temp Pulse Resp BP Pulse Ox 05/19/20 07:52 36.6 C 74 16 98/54 L 98 05/19/20 03:41 36.3 C L 63 16 101/58 L 95 Laboratory Results Urine 05/18/20 Range/Units 18:00 Urine Color Yellow Urine Appearance Clear (Clear) Urine pH 5.0 (4.5-7.5) Ur Specific [place] 1.017 (1.000-1.030) Urine Protein Negative (Negative) Urine Glucose (UA) Negative (Negative) Medications Administered Current Inpatient Medications Acetaminophen (Tylenol) 650 mg PO Q4H PRN PRN Reason: Pain or Fever Stop: 06/16/20 14:19 Last Admin: 05/19/20 08:38 Dose: 650 mg Documented by: Amiodarone HCl (Cordarone) 200 mg PO QAM [facility] Stop: 06/16/20 14:19 Last Admin: 05/19/20 08:40 Dose: 200 mg Documented by: Aspirin (Ecotrin Ectab) 81 mg PO QAM [facility] Stop: 06/16/20 14:19 Last Admin: 05/19/20 08:40 Dose: 81 mg Documented by: Digoxin (Lanoxin) 0.125 mg PO Q24H [facility] Stop: 06/16/20 15:59 Last Admin: 05/18/20 17:05 Dose: Not Given Documented by: Lactulose (Chronulac) 20 gm PO BID PRN PRN Reason: CONSTIPATION Stop: 06/16/20 14:38 Lisinopril (Zestril) 2.5 mg PO HS [facility] Stop: 06/16/20 20:59 Last Admin: 05/18/20 20:29 Dose: 2.5 mg Documented by: Magnesium Oxide (Mag-Ox) 400 mg PO BID [facility] Stop: 06/16/20 20:59 Last Admin: 05/19/20 08:41 Dose: 400 mg Documented by: Metoprolol Succinate (Toprol Xl) 12.5 mg PO BID [facility] Stop: 06/17/20 20:59 Last Admin: 05/19/20 08:39 Dose: 12.5 mg Documented by: Nitroglycerin (Nitrostat) 0.4 mg SL UD PRN PRN Reason: Chest Pain Stop: 06/16/20 14:19 Potassium Chloride (Klor-Con M10) 10 meq PO BID [facility] Stop: 06/16/20 20:59 Last Admin: 05/19/20 08:40 Dose: 10 meq Documented by: Spironolactone (Aldactone) [facility] Stop: 06/17/20 08:59 Last Admin: 05/19/20 08:40 Dose: 12.5 mg Documented by: Torsemide (Demadex) [facility] Stop: 06/18/20 08:59 Last Admin: 05/19/20 08:41 Dose: 20 mg Documented by: Warfarin Sodium (Coumadin) 1 mg PO Fr@1600 [facility] Stop: 06/21/20 15:59 Warfarin Sodium (Coumadin) 3 mg PO SuMoTuWeThSa@1600 [facility] Stop: 06/16/20 15:59 Last Admin: 05/18/20 17:04 Dose: 3 mg Documented by: Warfarin Sodium (Coumadin) 0.5 mg PO Fr@1600 [facility] Stop: 06/21/20 15:59
--- NOTE | 2020-05-20 09:51 | Discharge Summary ---
Date of Service May 20, 2020 Admission HPI Per Admitting Provider Pt is 49 y/o M with complex PMH including nonischemic cardiomyopathy with EF 20% s/p ICD, H/O VT/VF, history of LV thrombus, on chronic anticoagulation, history of stroke, history of portal vein thrombosis, chronic hypotension with SBPs in 80's-90's, chronic anemia, recent episode of syncope and fall resulting in subarachnoid hemorrhage and C[place]spine [place] [facility] [place] to ER with complaint of syncope. Patient states at baseline has dizziness with standing and usually waits a few minutes prior to walking. States this morning he stood up to go to the bathroom waited a few minutes but cannot wait very long as he needed to have BM and was walking down kiran reports "passed out". Patient does not think he lost full consciousness. He then went to bathroom reports later bent over to clam picker clothes having another episode of passing out. Patient reports abrasion to back. Denies any neck pain. He reports he was wearing his c-collar. Patient states had some discomfort to left ribs with deep palpation, no pain with breathing or range of motion. Denies any back pain, extremity pain, paresthesias or any other known injury from fall today. 04/16/2020 patient had syncopal episode and fall resulting in subarachnoid hemorrhage, C-spine fractures, ABDIAS. Patient was [place] [facility] [place] where he had C-spine surgery and is in c-collar for 6-8 weeks. Patient did not require brain procedure. Patient with original creatinine of 4 which down trended to 2.2 on 05/05/2020. Patient states has not been taking any narcotic pain meds. Patient closely being followed by home health and cardiology. Patient had home health BP on 04/13/2020 and SBP was in the 60s however patient was asymptomatic at the time. He reports his weight has been stable at 197 to 200 pounds. Denies any shortness of breath, orthopnea, PND, lower extremity edema. Patient reports is on 32 ounce fluid restriction. He states he is currently taking torsemide 20 mg twice daily, spironolactone 12.5 mg daily. Patient has lactulose to use twice daily as needed to maintain 2-3 BMs daily. Patient states past several days has needed to take lactulose daily and has been having loose BMs. Denies fever/chills, diaphoresis, N/V, VEGA, vision changes, palpitations, increased cough (reports chronic cough), sore throat, choking, otalgia, rhinorrhea, abdominal pain, paresthesias, weakness, extremity weakness, extremity edema, rashes, urinary symptoms. In ER pt reportedly had device interrogation without acute events noted. CT head without acute findings and c-spine without acute fractures. SBPs 80s-90s with pulse 40's-50's. He received 500ml NSS. Being admitted to hospital for further evaluation and treatment Admission Exam Per Admitting Provider Physical Exam: General: no acute distress, WDWN Head: normocephalic, atraumatic Eyes: PERRL, EOM's intact, conjunctiva non-injected, anicteric ENT: normal inspection external ears, nose, mucous membranes moist Neck: supple, trachea midline, C-collar in place Lungs: clear, no respiratory distress, no wheezing/rhonchi/rales CV: RRR, no murmur, no pretibial edema Chest wall: no ecchymosis or discolorations, non-tender to palpation, no crepitus Abd: normal BS, soft, non-tender, small ecchymosis noted lower abdomen Back: +abrasion right mid/lower back, No spinous process tenderness or brady pinous muscle tenderness to palpation, no CVA tenderness to palpation Ext: no cyanosis or erythema, no calf tenderness, ROM extremities intact Neuro: A&O x 3, no focal deficits noted, normal affect Skin: warm, dry Principal Diagnosis Recurrent syncope, bradyarrhythmia, nonischemic cardiomyopathy with status post AICD Discharge Exam Constitutional well developed, well nourished, + ill appearing and + obese; no acute distress Eyes PERRL, conjunctivae normal, anicteric sclerae ENMT external ear and nose normal, oropharynx normal Neck trachea midline, no thyromegaly Respiratory normal respiratory effort; no respiratory distress Auscultation: + diminished lung sounds and + crackles (Bibasilar crackles) Cardiovascular Rate/Rhythm: regular rate and regular rhythm Heart Sounds: no murmur Gastrointestinal (Abdomen) Inspection/Auscultation: abdomen normal to inspection and normal bowel sounds Percussion/Palpation: abdomen soft; abdomen nontender Lymphatic no cervical or axillary lymphadenopathy Discharge Data Allergies Allergy/AdvReac Type Severity Reaction Status Date / Time No Known Drug Allergies Allergy Unknown Unknown Unverified 05/17/20 11:49 adhesive AdvReac Intermediate Rash Unverified 05/17/20 11:49 Consultations 05/17/20 12:27 ED Decision to Admit Stat 05/17/20 14:20 Consult Cardiology Routine Consult Case Management - Discharge Planning Routine Ordered Studies 05/17/20 10:20 CT cervical spine wo con Stat 05/17/20 10:21 CT head/brain wo con Stat Hospital Course (1) Syncope: Pt is 49 y/o M with complex PMH including nonischemic cardiomyopathy with EF 20% s/p ICD, H/O VT/VF, history of LV thrombus, on chronic anticoagulation, history of stroke, history of portal vein thrombosis, chronic hypotension with SBPs in 80's-90's, chronic anemia, recent episode of syncope and fall resulting in subarachnoid hemorrhage and C-spine fractures [place] [facility] [place] to ER with complaint of syncope. DDX: orthostatic hypotension, symptomatic bradycardia, arrhythmia, brain bleed, seizure CT head without any acute findings. Device interrogation in ER without reported event. Probable syncope secondary to hypotension, bradycardia Has been feeling a lot better since admission Denies any more episode (2) Bradycardia: In ER Pulse 40's-50s -Cardiology consult, spoke to business analyst sales operations and recommends decreasing metoprolol succinate from 37.5mg BID to 25mg BID secondary to bradycardia -Pacemaker monitor interrogated and has not found any significant arrhythmias -Appreciate cardiology input and recommendation -Beta-diane dose has been decreased -His heart rate remains stable without any arrhythmias and no more bradycardia (3) Elevated troponin: Troponin: 0.074, 0.08. (was 0.08 in 04/16/2020) No acute EKG changes, No CP, SOB. Pt with renal impairment Doubt any ACS (4) CKD (chronic kidney disease): H/O ABDIAS in 04/2020 with Cr of 4 which down trended to 2.2 on 05/05/2020 Today Cr: 2.3 -Avoid nephrotoxic agents when possible -Renal function has remained stable with creatinine 2.28 as of 05/19/2020 (5) Nonischemic cardiomyopathy: EF: 20% on echo 04/2020 H/O VT/VF S/P ICD -Continue amiodarone, digoxin (digoxin level: 1.8), metoprolol, lisinopril, aspirin -No evidence of volume overload today. Continue torsemide, spironolactone -Normally on 1L fluid restriction, will allow for 1500ml fluid restriction for now. Received 500ml NSS in ER -Daily weights, monitor I's&O's, low sodium diet -He will have ICD replacement sometime in the near future (6) LV (left ventricular) mural thrombus: H/O LV thrombus. On Coumadin Coumadin was held after traumatic subarachnoid hemorrhage in 04/16/2020. Was resumed 05/06/2020 per neurosurgery clearance INR: 1.9 Continue Coumadin INR in am-INR is 2.3 on 05/18/2020 (7) Portal vein thrombosis: H/O elevated ammonia levels. On lactulose Ammonia: 32.8 Continue lactulose (8) Traumatic subarachnoid hemorrhage: Was evaluated by [facility] neurology and was advised to restart Coumadin No acute symptoms (9) Cervical spine fracture: 04/16/2020 patient had syncopal episode and fall resulting in subarachnoid hemorrhage, C-spine fractures. [place] [facility] had C-spine surgery and is in c- collar for 6-8 weeks. No acute findings on CT head or CT C-spine today. No reported neck pain or VEGA Continue c-collar DVT Prophylaxis -On Coumadin -INR is 2.7 today Full Code Follows with Dr West for routine care Will discharge home this afternoon Total Time Total Time Spent Total Time Spent (In Minutes): 35 minutes Total Time Includes: Examination of the Patient, Discharge Planning, Medication Reconciliation and Communication With Other Providers Discharge Plan Discharge Items Patient Disposition: Home - Self-Care Reason For Visit: SYNCOPE Discharge Diagnosis: Recurrent syncope, bradyarrhythmia, nonischemic cardiomyopathy with status post AICD Condition on Discharge: Fair Activity: Resume your previous activity Non-emergency contact: Primary Care Provider Call non-emergency contact if: you have any medication questions and your symptoms worsen Follow-up/Referrals: Oral West MD [Primary Care Provider] - 05/26/20 11:00 am (05/26/2020 11:00 AM Provider Oral West MD Department General Internal Medicine [facility] cardiology will call you with an appointment ) Diet: Heart Healthy Fluids: 1500ml (6 cups) Addtl Attending Provider Instructions: Please take precaution to avoid falls Your beta-diane doses have been decreased Please take the torsemide as advised Please keep regular appointment with the coagulation clinic Pending Studies at Discharge: No Stand-Alone Forms: My [facility], Smoking Cessation Medications and DC Order Prescriptions: New metoprolol succinate 25 mg Tablet Extended Release 24 Hr 12.5 mg PO BID 30 Days Qty: 30 RF: 0 Continued torsemide 20 mg tablet 20 mg PO BID RF: 0 amiodarone [Pacerone] 200 mg tablet 200 mg PO QAM RF: 0 aspirin 81 mg Tablet,Delayed Release (Dr/Ec) 81 mg PO QAM RF: 0 spironolactone [Aldactone] 25 mg tablet 12.5 mg PO QAM RF: 0 warfarin [Jantoven] 3 mg tablet 1.5 mg PO FR RF: 0 warfarin [Jantoven] 3 mg tablet 3 mg PO SUMOTUWETHSA RF: 0 digoxin [Digox] 125 mcg (0.125 mg) tablet 125 mcg PO HS RF: 0 lisinopril 2.5 mg tablet 2.5 mg PO HS RF: 0 potassium chloride [Klor-Con M10] 10 mEq tablet,ER particles/crystals 10 meq PO BID RF: 0 lactulose 10 gram/15 mL solution 30 ml PO BID PRN (Reason: Other) RF: 0 magnesium oxide 400 mg magnesium Tablet 400 mg PO BID RF: 0 acetaminophen [Tylenol Extra Strength] 500 mg Tablet 500 mg PO Q6H PRN (Reason: Pain) RF: 0 nitroglycerin [Nitrostat] 0.4 mg Tablet, Sublingual 0.4 mg sublingual UD RF: 0 Discontinued metoprolol succinate [Toprol XL] 25 mg tablet extended release 24 hr 37.5 mg PO BID RF: 0 Discharge Orders: Discharge Order (Routine); Ordered 05/19/20 Ordered By: Nerissa Hays Admission Data Admit Date/Time: 05/17/20 13:19 Attending Provider: Nerissa Hays Admit Provider: Roge Yung Primary Care Provider: Oral West Other Providers: Roge Yung ; Cleve Carpenter Other Interventions: Discharge Summary Assessment (RN) Last Done: 05/19/20 12:39 DC Date/Time DO NOT enter until pt leaves facility: 05/19/20 14:15
[2020-05-22] MEDS ORDERED: WARFARIN SOD 1 MG TAB PO SCH (16:00)
[2020-05-22] MEDS ORDERED: WARFARIN SOD 0.5 MG TAB PO SCH (16:00)
== END 2020-05-19 14:15 | disposition home or self-care (01) | DRG 309 ==
LOC: ED 10:04 → 2S 13:19 → SUATTDRO 13:19 → 2S 13:44